=== PATIENT | female | born 1990 | race Caucasian/White ===

== ENCOUNTER 2022-06-08 20:29 | Inpatient (IN) | payer OTHER, SELFPAY ==
[2022-06-08] VITALS (23 sets, daily range): BP systolic 113–145; BP diastolic 62–89; PULSE 67–107; RESP 12–23; TEMP 36.6; O2SAT 95–100
--- NOTE | ~2022-06-08 | US_ITS ---
EXAMINATION: US OB <=14 wk fetus w TV INDICATION: , lower abd pain. Pelvic pain after taking oral termination medication purchased on line. LMP 04/29/2022. TECHNIQUE: Sonography of the pelvis was performed by transvaginal techniques. COMPARISON: None. RESULT: Uterus: - Orientation: Anteverted - Size: 10.4 x 6.1 x 4.8 cm - Myometrium: homogeneous echogenicity Gestation: - Intrauterine gestational sac: Not seen - Right ovary: - Size : 2.6 x 2.6 x 1.7 cm - Normal sonographic appearance with physiologic follicles. Left ovary: -Left ovary not visualized - 7.0 x 4.7 x 6.4 heterogeneous left adnexal mass with a 3.4 cm internal hypoechoic area that ma y represent an abnormal gestational sac. Pelvis free fluid: Large volume of free pelvic fluid tracking to the perihepatic and perisplenic spac es. Incidental liver hemangioma. IMPRESSION: No intrauterine gestational sac. Heterogeneous 7 cm left adnexal mass. Large volume free pelvic fluid extending to the liver and spleen. These findings are concerning for ectopic with rupture. Results reported telephonically to DELTA Olguin by Dr. Carter at 10:35 PM on 06/08/2022. Reviewed, dictated and finalized at location K. IMPRESSION: No intrauterine gestational sac. Heterogeneous 7 cm left adnexal mass. Large vo lume free pelvic fluid extending to the liver and spleen. These findings are co ncerning for ectopic with rupture. Results reported telephonically to DELTA Olguin by Dr. Carter at 10:3 5 PM on 06/08/2022.
--- NOTE | 2022-06-08 21:23 | ED.GENADULT ---
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 Patient states that the pain is severe in nature, is across her lower abdomen, and is constant. Denies relief after ibuprofen. She did have some vaginal bleeding after she took the pills, but this has eased up. patient got these pills online, she was told by the nurses facilitating the prescription that she should come to the ER to rule out an ectopic . Denies syncope, extremity swelling, headaches, lightheadedness. Related Data Home Medications Medication Instructions Recorded Confirmed fluticasone propionate 220 1 puff inhalation BID 06/09/22 06/09/22 mcg/actuation HFA aerosol inhaler (Flovent HFA) Allergies Allergy/AdvReac Type Severity Reaction Status Date / Time No Known Allergies Allergy Unknown Verified 12/12/19 10:51 Review of Systems Review of Systems: Gen: Denies fevers or chills Eyes: Denies eye pain or visual change ENT: Denies congestion Respiratory: Denies shortness of breath or cough CV: Denies chest pain or palpitations GI: Reports abdominal pain denies burning, urgency, frequency or hematuria Musculoskeletal: Denies back pain or muscle pain Neuro: Denies numbness, tingling, weakness or focal weakness Skin: Denies rash Except as documented, all other systems reviewed and negative [facility] Past Medical History Medical History (Updated 06/09/22 @ 00:02 by Emma Correa MD) Asthma Finger fracture, left HTN (hypertension) idiopathic intracranial hypertension Surgical History Surgical History (Updated 06/09/22 @ 08:35 by Emma Correa MD) History of removal of skin mole No significant past surgical history Family History Family History (Updated 06/09/22 @ 03:34 by Elisabet Wade RN) Mother Breast cancer Social History Social History Smoking status: Never smoker Alcohol intake: never Substance use: current Substance use type: marijuana Other substance usage details: daily Spiritual care concerns: No Exam Narrative: APPEARANCE: Well appearing, no pain in distress, well-nourished. Head: Normocephalic and atraumatic. EYES: PERRLA/EOMI, conjunctivae clear NOSE: No nasal drainage EARS: External ear normal in appearance THROAT: Oropharynx is clear. Mucous membranes are moist. NECK: Supple. No adenopathy, no masses. RESPIRATORY: Airway patent, respirations nonlabored. Clear to auscultation bilaterally, no rales, rhonchi, wheezing. CARDIOVASCULAR: Regular rate and rhythm without murmurs, rubs, or gallops. ABDOMINAL: Diffusely tender in lower abdomen. Normoactive bowel sounds. Soft, nondistended. No rebound tenderness or guarding. MUSCULOSKELETAL: Extremities are warm and well-perfused. Moves all extremities well. No edema. NEURO: Normal speech. No focal neurologic deficits. SKIN: Skin is warm and dry. No rashes. PSYCHIATRIC: Normal affect/mood. Course Consultations Consultation #1: Spoke with Dr. Correa, SOLAR MAINTENANCE TECHNICIAN, will take into OR for suspected ruptured ectopic Date: 06/08/22 Time: 22:55 Vital Signs Vital signs: Vital Signs Temperature 97.8 F 06/08/22 20:35 Pulse Rate 86 06/08/22 20:35 Respiratory Rate 18 06/08/22 20:35 Blood Pressure 122/84 06/08/22 20:35 Pulse Oximetry 100 06/08/22 20:35 Oxygen Delivery Room Air 06/08/22 20:35 Temperature 98.6 F 06/09/22 10:25 Pulse Rate 72 06/09/22 10:25 Respiratory Rate 16 06/09/22 10:25 Blood Pressure 107/60 06/09/22 10:25 Pulse Oximetry 100 06/09/22 10:25 Oxygen Delivery Room Air 06/09/22 08:00 Oxygen Flow Rate 6 06/09/22 02:30
[2022-06-08 21:43] LABS: Basophils Absolute Auto 0.1 K/mm3 (0.0-0.1); Basophils Percent Auto 0.5 % (0.2-1.2); Eosinophils Percent Auto 0.4 % (0-4.4); Hematocrit 32.6 % (37.0-47.0); Hemoglobin 10.6 g/dL (12.0-15.0); Immature Granulocyte Absolute 0.02 K/mm3 (0.00-0.031); Immature Granulocyte Percent A 0.2 % (0-0.5); Lymphocytes Absolute Auto 1.38 K/mm3 (0.9-3.2); Lymphocytes Percent Auto 12.3 % (18.3-44.2); Mean Corpuscular HGB Conc 32.5 g/dl (32-36); Mean Corpuscular Hemoglobin 29.7 pg (26-34); Mean Corpuscular Volume 91.3 fl (80-100); Mean Platelet Volume 10.7 fl (7.4-10.4); Monocytes Absolute Auto 0.5 K/mm3 (0.1-0.6); Monocytes Percent Auto 4.8 % (2.6-8.5); Neutrophils Absolute Auto 9.2 K/mm3 (1.3-6.7); Neutrophils Percent Auto 81.8 % (45.5-73.1); Platelet Count Result 293 k/mm3 (150-375); Red Blood Count 3.57 M/mm3 (4.2-5.4); Red Cell Distribution Width 13.3 % (11.5-14.5); White Blood Count 11.2 K/mm3 (4.5-10.0)
[2022-06-08 21:45] LABS: Appearance Urine Clear (Clear); Bilirubin Urine 1+ (Negative); Blood Urine Negative (Negative); Color Urine Yellow (Yellow); Glucose Urine UA Negative (Negative); Ketones Urine 4+ mg/dL (Negative); Leukocyte Esterase Ur Negative LEU/UL (Negative); Nitrate Urine Negative (Negative); Protein Urine Trace mg/dL (Negative); Specific Grav Ur 1.025 (1.001-1.035); Urobilinogen Urine 0.2 mg/dL (<2.0); pH Urine 5.5 (5.0-9.0)
[2022-06-08 21:51] LABS: Bacteria Urine Trace /hpf; Mucus Urine Heavy /lpf; Squamous Epithelial Cell Urine Many /hpf (Few)
[2022-06-08 21:54] LABS: Alanine Aminotransferase 10 U/L (6-35); Albumin Level 4.3 g/dL (3.5-5.1); Alkaline Phosphatase 45 U/L (38-126); Anion Gap 10 mmol/L (8-16); Aspartate Amino Transferase 16 U/L (14-36); Bilirubin,Total 0.8 mg/dL (0.2-1.3); Blood Urea Nitrogen 7 mg/dL (7-17); Calcium 9.7 mg/dL (8.4-10.2); Carbon Dioxide 25 mmol/L (22-30); Chloride 103 mmol/L (98-107); Estimated CRCL calculation 93 ml/min; Estimated Glomerular Filt Rate > 60; Glucose 114 mg/dL (65-110); Potassium 3.9 mmol/L (3.4-5.0); Sodium 138 mmol/L (137-145)
[2022-06-08 21:58] LABS: Add Urine Microscopic? YES
[2022-06-08] MEDS: MORPHINE SULFATE (*CRX) 4 MG/ML INJ IV PUSH (22:59)
[2022-06-08] MEDS: SODIUM CHLORIDE 0.9% IV 1,000 ML 999 ML IV CONT (22:59)
--- NOTE | 2022-06-08 23:08 | PC.NURSE ---
pt removing all jewlery and placing into bag. Pt placing booties on and hair net to prepare for OR.
[2022-06-08 23:23] LABS: Beta HCG Quantitative 140.57 mIU/ML
--- NOTE | 2022-06-08 23:35 | PM.IMHP ---
H&P: HPI History of Present Illness Date/Time: 06/08/22 23:35 Chief Complaint: Abdominal pain Narrative: Patient is a LMP approx. 04/29/22 who presented to the ED with complaints of abdominal pain. Based on LMP, patient would be approx. 5w6d gestation. This was an undesired and she contacted [employer] [facility] online service for termination. She received medication in the mail. She took mifepristone on 05/03 followed by two doses of misoprostol on 05/04. She did not start bleeding as expected and was advised by [employer] service to take a third dose of misoprostol on 05/05. She reports onset of bleeding shortly afterwards. Bleeding continued from 05/05 until 05/07. She reports bleeding, however, denies any passage of clots or tissue. She denies any further bleeding since then. She was feeling well until last night when she developed abdominal pain. Pain persisted throughout day today and patient also reported feeling dizzy and warm. She also experienced two episodes of emesis. She contacted [employer] service who advised patient to present to ED for further evaluation. Pelvic US showed a 7cm left adnexal mass with a 3.4cm hypoechoic structure, possibly gestational sac and a large amount of free fluid. High suspicion for ruptured ectopic . Decision made to proceed to OR for diagnostic laparoscopy, possible operative laparoscopy, removal of ectopic , possible salpingectomy. Review of Systems Review of Systems: All systems reviewed & are unremarkable except as noted in HPI and below Constitutional: Constitutional: Reports as per HPI and Reports no additional constitutional complaints Eyes: Eyes: Reports as per HPI and Reports no additional eye complaints ENT: Reports system reviewed and no additional complaints, except as documented and Reports as per HPI Cardiovascular: Cardiovascular: Reports as per HPI and Reports no additional cardiovascular complaints Respiratory: Respiratory: Reports as per HPI and Reports no additional respiratory complaints Gastrointestinal: Gastrointestinal: Reports as per HPI and Reports no additional gastrointestinal complaints Genitourinary: Genitourinary: Reports no additional female genitourinary complaints and Reports as per HPI Musculoskeletal: Musculoskeletal: Reports no additional musculoskeletal complaints and Reports as per HPI Integumentary/Breasts: Skin/Breast: Reports system reviewed and no additional complaints, except as docu and Reports as per HPI Neurologic: Reports system reviewed and no additional complaints, except as documented and Reports as per HPI Psychiatric: Psychiatric: Reports no additional psychiatric complaints and Reports as per HPI Endocrine: Endocrine: Reports no additional endocrine complaints and Reports as per HPI Hematologic/Lymphatic: Hematologic/Lymphatic: Reports no additional hematologic/lymphatic complaints and Reports as per HPI Allergic/Immunologic: Allergic/Immunologic: Reports no additional allergic/immunologic complaints and Reports as per HPI [facility] Past Medical History Medical History (Updated 06/09/22 @ 00:02 by Emma Correa MD) Asthma Finger fracture, left HTN (hypertension) idiopathic intracranial hypertension Surgical History Surgical History (Updated 06/08/22 @ 23:59 by Emma Correa MD) History of removal of skin mole No significant past surgical history Social History Social History Smoking status: Former smoker Substance use type: marijuana Meds Home Medications and Allergies Home Medications Medication Instructions Recorded Confirmed Type acetazolamide 500 mg 500 mg PO BID 12/12/19 12/12/19 History capsule,extended release albuterol sulfate 90 mcg/actuation 2 puff inhalation QID PRN 12/12/19 Rx aerosol inhaler (Ventolin HFA) shortness of breath or wheezing #1 g azithromycin 250 mg tablet See Rx Instructions PO .COMPLEX #6 12/12/19 Rx t
[2022-06-08 23:43] LABS: SARS-CoV-2 RNA PCR Negative
--- NOTE | 2022-06-08 23:43 | WPDANESEPP ---
Anes - Eval Pre Procedure Date/Time: 06/08/22 23:43 Pre Op Diagnosis: abd pain, took pill last monday Patient Data Age: 31 Gender: F Height: 1.57 m Weight: 61.2 kg Last Vital Signs Temp 36.6 C 06/08/22 20:35 Pulse 86 06/08/22 23:17 Resp 16 06/08/22 23:17 BP 115/87 06/08/22 23:17 Pulse Ox 100 06/08/22 23:17 O2 Del Method Room Air 06/08/22 20:35 Allergies Allergy/AdvReac Type Severity Reaction Status Date / Time No Known Allergies Allergy Unknown Verified 12/12/19 10:51 Home Medications Medication Instructions Recorded Confirmed Type acetazolamide 500 mg 500 mg PO BID 12/12/19 12/12/19 History capsule,extended release albuterol sulfate 90 mcg/actuation 2 puff inhalation QID PRN 12/12/19 Rx aerosol inhaler (Ventolin HFA) shortness of breath or wheezing #1 g azithromycin 250 mg tablet See Rx Instructions PO .COMPLEX #6 12/12/19 Rx tabs benzonatate 100 mg capsule 100 mg PO TID #20 caps 12/12/19 Rx (Tessalcassi Yu) prednisone 20 mg tablet 80 mg PO DAILY #12 tabs 12/12/19 Rx Laboratory Tests 06/08/22 06/08/22 06/08/22 21:36 21:36 21:36 WBC 11.2 K/mm3 H K/mm3 (4.5-10.0) RBC 3.57 M/mm3 L M/mm3 (4.2-5.4) Hgb 10.6 g/dL L g/dL (12.0-15.0) Hct 32.6 % L % (37.0-47.0) MCV 91.3 fl fl (80-100) MCH 29.7 pg pg (26-34) MCHC 32.5 g/dl g/dl (32-36) RDW 13.3 % % (11.5-14.5) Plt Count 293 k/mm3 k/mm3 (150-375) MPV 10.7 fl H fl (7.4-10.4) Immature Gran % (Auto) 0.2 % % (0-0.5) Neut % (Auto) 81.8 % H % (45.5-73.1) Lymph % (Auto) 12.3 % L % (18.3-44.2) [place] % (Auto) 4.8 % % (2.6-8.5) Eos % (Auto) 0.4 % % (0-4.4) Baso % (Auto) 0.5 % % (0.2-1.2) Lymph # (Auto) 1.38 K/mm3 K/mm3 (0.9-3.2) [place] # (Auto) 0.5 K/mm3 K/mm3 (0.1-0.6) Eos # (Auto) 0.0 K/mm3 K/mm3 (0-0.3) Baso # (Auto) 0.1 K/mm3 K/mm3 (0.0-0.1) Abs Immat Gran (auto) 0.02 K/mm3 K/mm3 (0.00-0.031) Absolute Neuts (auto) 9.2 K/mm3 H K/mm3 (1.3-6.7) Absolute Nucleated RBC 0.0 K/mm3 K/mm3 (0.0-0.012) Nucleated RBC % 0.0 % % (0.0-0.2) Sodium 138 mmol/L mmol/L (137-145) Potassium 3.9 mmol/L mmol/L (3.4-5.0) Chloride 103 mmol/L mmol/L (98-107) Carbon Dioxide 25 mmol/L mmol/L (22-30) Anion Gap 10 mmol/L mmol/L (8-16) BUN 7 mg/dL mg/dL (7-17) Creatinine 0.60 mg/dL L mg/dL (0.7-1.0) Estim Creat Clear Calc 93 ml/min ml/min Estimated GFR > 60 (59 - ) Glucose 114 mg/dL H mg/dL (65-110) Calcium 9.7 mg/dL mg/dL (8.4-10.2) Total Bilirubin 0.8 mg/dL mg/dL (0.2-1.3) AST 16 U/L U/L (14-36) ALT 10 U/L U/L (6-35) Alkaline Phosphatase 45 U/L U/L (38-126) Total Protein 7.0 g/dL g/dL (6.3-8.2) Albumin 4.3 g/dL g/dL (3.5-5.1) Beta HCG, Quant Urine Color Yellow (Yellow) Urine Appearance Clear (Clear) Urine pH 5.5 (5.0-9.0) Ur Specific [place] 1.025 (1.001-1.035) Urine Protein Trace mg/dL mg/dL (Negative) Urine Glucose (UA) Negative mg/dL mg/dL (Negative) Urine Ketones 4+ mg/dL H mg/dL (Negative) Ur Blood (Man) Negative (Negative) Urine Nitrate Negative (Negative) Urine Bilirubin 1+ H (Negative) Urine Urobilinogen 0.2 mg/dL mg/dL (<2.0) Leukocyte Esterase Rfl Negative JOSE MIGUEL/UL JOSE MIGUEL/UL (Negative) Urine RBC 3-5 /hpf H /hpf (0-2) Urine WBC 4-6 /hpf H /hpf Ur Squamous Epith Cells Many /hpf H /hpf (Few) Urine Bacteria Trace /hpf /hpf Hyaline Casts 1-2 /lpf /lpf (
[2022-06-09] VITALS (15 sets, daily range): BP systolic 99–145; BP diastolic 60–92; PULSE 67–119; RESP 14–24; TEMP 36–37; O2SAT 95–100; BMI 25.2
--- NOTE | 2022-06-09 00:05 | WPDHPUPDATE1 ---
History and Physical Update Update Date/Time: 06/09/22 00:05 History and Physical has been reviewed, including an updated exam of the patient. There are NO changes in the patient's condition. Risks, benefits, and alternatives have been discussed and questions answered. Patient agrees to proceed with procedure.
--- NOTE | 2022-06-09 00:11 | WPDANESEPPF ---
Anes - Initial Pre Proc Eval Procedure: Operation Date: 06/08/22 00:30 Proposed Procedures p Exploratory Laparoscopy with possible salpingectomy - Emma Correa MD Date/Time: 06/09/22 00:11 Pre Op Diagnosis: abd pain, took pill last monday Patient Data Age: 31 Gender: F Height: 1.57 m Weight: 61.2 kg Last Vital Signs Temp 36.6 C 06/08/22 20:35 Pulse 96 06/08/22 23:47 Resp 21 H 06/08/22 23:47 BP 122/65 06/08/22 23:47 Pulse Ox 100 06/08/22 23:47 O2 Del Method Room Air 06/08/22 20:35 Allergies Allergy/AdvReac Type Severity Reaction Status Date / Time No Known Allergies Allergy Unknown Verified 12/12/19 10:51 Home Medications Medication Instructions Recorded Confirmed Type acetazolamide 500 mg 500 mg PO BID 12/12/19 12/12/19 History capsule,extended release albuterol sulfate 90 mcg/actuation 2 puff inhalation QID PRN 12/12/19 Rx aerosol inhaler (Ventolin HFA) shortness of breath or wheezing #1 g azithromycin 250 mg tablet See Rx Instructions PO .COMPLEX #6 12/12/19 Rx tabs benzonatate 100 mg capsule 100 mg PO TID #20 caps 12/12/19 Rx (Tessalon Gigi) prednisone 20 mg tablet 80 mg PO DAILY #12 tabs 12/12/19 Rx Laboratory Tests 06/08/22 06/08/22 06/08/22 21:36 21:36 21:36 WBC 11.2 K/mm3 H K/mm3 (4.5-10.0) RBC 3.57 M/mm3 L M/mm3 (4.2-5.4) Hgb 10.6 g/dL L g/dL (12.0-15.0) Hct 32.6 % L % (37.0-47.0) MCV 91.3 fl fl (80-100) MCH 29.7 pg pg (26-34) MCHC 32.5 g/dl g/dl (32-36) RDW 13.3 % % (11.5-14.5) Plt Count 293 k/mm3 k/mm3 (150-375) MPV 10.7 fl H fl (7.4-10.4) Immature Gran % (Auto) 0.2 % % (0-0.5) Neut % (Auto) 81.8 % H % (45.5-73.1) Lymph % (Auto) 12.3 % L % (18.3-44.2) [place] % (Auto) 4.8 % % (2.6-8.5) Eos % (Auto) 0.4 % % (0-4.4) Baso % (Auto) 0.5 % % (0.2-1.2) Lymph # (Auto) 1.38 K/mm3 K/mm3 (0.9-3.2) [place] # (Auto) 0.5 K/mm3 K/mm3 (0.1-0.6) Eos # (Auto) 0.0 K/mm3 K/mm3 (0-0.3) Baso # (Auto) 0.1 K/mm3 K/mm3 (0.0-0.1) Abs Immat Gran (auto) 0.02 K/mm3 K/mm3 (0.00-0.031) Absolute Neuts (auto) 9.2 K/mm3 H K/mm3 (1.3-6.7) Absolute Nucleated RBC 0.0 K/mm3 K/mm3 (0.0-0.012) Nucleated RBC % 0.0 % % (0.0-0.2) Sodium 138 mmol/L mmol/L (137-145) Potassium 3.9 mmol/L mmol/L (3.4-5.0) Chloride 103 mmol/L mmol/L (98-107) Carbon Dioxide 25 mmol/L mmol/L (22-30) Anion Gap 10 mmol/L mmol/L (8-16) BUN 7 mg/dL mg/dL (7-17) Creatinine 0.60 mg/dL L mg/dL (0.7-1.0) Estim Creat Clear Calc 93 ml/min ml/min Estimated GFR > 60 (59 - ) Glucose 114 mg/dL H mg/dL (65-110) Calcium 9.7 mg/dL mg/dL (8.4-10.2) Total Bilirubin 0.8 mg/dL mg/dL (0.2-1.3) AST 16 U/L U/L (14-36) ALT 10 U/L U/L (6-35) Alkaline Phosphatase 45 U/L U/L (38-126) Total Protein 7.0 g/dL g/dL (6.3-8.2) Albumin 4.3 g/dL g/dL (3.5-5.1) Beta HCG, Quant Urine Color Yellow (Yellow) Urine Appearance Clear (Clear) Urine pH 5.5 (5.0-9.0) Ur Specific [place] 1.025 (1.001-1.035) Urine Protein Trace mg/dL mg/dL (Negative) Urine Glucose (UA) Negative mg/dL mg/dL (Negative) Urine Ketones 4+ mg/dL H mg/dL (Negative) Ur Blood (Man) Negative (Negative) Urine Nitrate Negative (Negative) Urine Bilirubin 1+ H (Negative) Urine Urobilinogen 0.2 mg/dL mg/dL (<2.0) Leukocyte Esterase Rfl Negative JOSE MIGUEL/UL JOSE MIGUEL/UL (Negative) Urine RBC 3-5 /hpf H /hpf (0-2) Urine WBC 4-6 /hpf H /hp
[2022-06-09] MEDS: DOXYCYCLINE 100 MG/NS 100 ML 100 MG/100 ML BAG IVPB (00:21)
[2022-06-09] MEDS: BUPIVACAINE/EPINEPHRINE 0.25% 10 ML VIAL 20 ML INFILTRATE (00:52)
--- NOTE | 2022-06-09 01:55 | W.PM.PROC2 ---
Procedure Note - Detailed Date of Procedure 06/09/22 Pre-op Diagnosis Suspected ruptured ectopic Post-op Diagnosis Same Procedure Performed Diagnostic laparoscopy with conversion to laparotomy, abdominal left salpigo-oophorectomy, evacuation of hemoperitoneum Surgeon Emma Correa MD Survey Research Manager Madie Frey Anesthesia General Findings Moderate amount of hemoperitoneum, minimally dilated left fallopian tube oozing from fimbriated end with large adherent blood clot, enlarged left ovary, normal appearing uterus, normal appearing right ovary and fallopian tube Description of Procedure Patient was taken to the operating room where she self-transferred to the operating table. Patient was placed in dorsal supine position. General anesthesia was administered and found to be adequate. Patient was repositioned in dorsal lithotomy position with the use of Bassam stirrups. Arms were carefully tucked at side. Patient was prepped and draped in usual sterile fashion. A Hazel catheter was inserted using aseptic technique. A sponge stick was inserted in vagina for manipulation of uterus during laparoscopic portion of case. Substation Designer's gloves were changed. Attention was then turned to the patient's abdomen where a small amount of 0.25% Marcaine was injected infraumbilically.? An infraumbilical incision was made with a scalpel.? A Veress needle was introduced into the abdominal cavity.? Intra-abdominal placement was confirmed with saline.? The Veress needle was then connected to the CO2 gas tubing and insufflation was begun.? When adequate insufflation was achieved, the Veress needle was removed and a 5 mm Optiview trocar was introduced under direct visualization using the laparoscope. The trocar was noted to be superior to peritoneum and despite several attempts to reposition and reinsert trocar both with and without introducer, further attempts at entry was deemed to be unsafe and decision was made to convert to laparotomy. Trocar was removed. When laparotomy surgical tray was opened, a mini Pfannenstiel skin incision was made with a scalpel and carried through to underlying layer of fascia with the Bovie. The fascia was incised in the midline and the incision was extended laterally with the use of forceps and Land scissors. The inferior aspect of the fascial incision was grasped with Ed clamps, elevated, and the underlying rectus muscle were dissected off with Land scissors. Attention was then turned to the superior aspect of the fascial incision, which in a similar manner, was grasped with Ed clamps, elevated, and the underlying rectus muscles were also dissected off with Land scissors. The rectus muscles were in the midline and the peritoneal cavity was entered bluntly. Immediately upon entry, a large amount of dark blood was returned and subsequently suctioned. Park retractor and [place] retractors were placed for enhanced visualization. The left fallopian tube and ovary were visualized. A large adherent blood clot surrounding the fimbriated end of fallopian tube and ovary was noted. Clot was removed. The fallopian tube appeared mildly dilated with minimal amount of oozing noted from fimbriated end. The ovary appeared enlarged. A LigaSure device was then used to take sequential bites in the mesosalpinx beneath fallopian tube to the level of the uterus. The fallopian tube was transected and handed off the field to be sent to pathology for analysis. Upon further inspection of enlarged left ovary, there was also possible suspicion for possible ectopic within ovary. A fluctuant area of the ovary was incised with scissors and a moderate amount of bloody fluid and tissue was extruded from ovary. The utero-ovarian ligament was then identified and transected with the Ligasure device. The infundibulopelvic ligament was then identified and also transected, completely the ovary. Ovary was then handed off the field to be sent to pathology for
[2022-06-09] MEDS: LACTATED RINGERS 1,000 ML 30 ML IV CONT (02:00)
[2022-06-09] MEDS: fentaNYL CITRATE INJ (*CRX) 100 MCG/2 ML VIAL 25 MCG IV PUSH ×4 (02:12→02:33)
[2022-06-09] MEDS: ceFAZolin 2 GM/D5W 50 ML 2 GM/50 ML BAG IVPB ×2 (02:35→10:24)
[2022-06-09] MEDS: IBUPROFEN IV 800 MG/200 ML 800 MG/200 ML BAG 400 MG IVPB ×2 (03:00→09:02)
[2022-06-09] MEDS: MORPHINE SULFATE (*CRX) 4 MG/ML INJ IV PUSH (03:45)
[2022-06-09] MEDS: DEXTROSE 5%/LACTATED RINGERS 1,000 ML 125 ML IV CONT ×3 (03:47→22:52)
--- NOTE | 2022-06-09 04:15 | ADMGEN ---
This patient, Lilian Corado, was admitted to 2 Medical Room 255-. Patient/family oriented to hospital policies and general routines including ID bracelet, bed and alarms, visiting hours, pain management, procedures, bathroom and other care routines, personal items, smoking policy, room service/diet, and visiting hours. Information on how to activate the Rapid Response Team has been discussed. Patient/Family are encouraged to report perceived risks to care and to ask questions if they do not understand what they are told or what they should do.
[2022-06-09] MEDS: HYDROcodone/acetaminophen (*CRX) 5-325 MG TABLET 1 TAB PO ×2 (06:16→18:07)
--- NOTE | 2022-06-09 08:33 | PM.GYNPNOP ---
PRIMER BOXER - A/P Assessment and plan (1) History of left salpingo-oophorectomy: Code(s): Z90.79 - Acquired absence of other genital organ(s); Z90.721 - Acquired absence of ovaries, unilateral Status: Acute Assessment and Plan: doing well continue routine postoperative care switch completely to PO pain medication this AM/early PM will dc aparicio this afternoon encourage OOB to chair and ambulation Postoperative Procedures: Procedures Operation Date: 06/09/22 00:30 Actual Procedure Side Surgeon p Diagnostic Laparoscopy with conversion to laparotomy, abdominal left salpingo-oopherectomy, evacuation of hemoperitoneum Left Emma Correa MD Time Spent With Patient Time: Total time spent is greater than 50% in coordination of care (as documented) at patient's floor/unit and/or counseling patient: Time with patient: less than 15 minutes PRIMER BOXER- PN:Subj Post-Op Subjective Date/time seen: 06/09/22 08:33 In general, patient doing well. Pain reasonably well controlled with medication. Reported mild nausea with PO medication earlier. Denies any vomiting. Also denies any headache or chest pain. Aparicio catheter in place. No flatus yet. No ambulation yet. Exam Const: General: cooperative, healthy appearing and no acute distress GI: Inspection: non-distended GI Palp: Yes Soft to palpation and Yes Tenderness to palpation present (GI) (appropriately tender) Extrem: Right lower extremity: no edema Left lower extremity: no edema Other: no calf tenderness PRIMER BOXER - PN: Obj Data Vital Signs Vital Signs: Vital Signs - 24 hr 06/08/22 20:35 06/08/22 21:48 06/08/22 21:12 Temperature 36.6 C Pulse Rate 86 67 Respiratory Rate 18 16 Blood Pressure 122/84 113/80 Pulse Oximetry 100 100 95 Oxygen Delivery Room Air Oxygen Flow Rate 06/08/22 21:15 06/08/22 21:16 06/08/22 21:17 Temperature Pulse Rate 84 Respiratory Rate 12 Blood Pressure 114/83 115/79 Pulse Oximetry 100 100 100 Oxygen Delivery Oxygen Flow Rate 06/08/22 21:30 06/08/22 21:38 06/08/22 21:45 Temperature Pulse Rate Respiratory Rate Blood Pressure 116/89 Pulse Oximetry 100 100 Oxygen Delivery Oxygen Flow Rate 06/08/22 21:46 06/08/22 22:30 06/08/22 22:33 Temperature Pulse Rate Respiratory Rate Blood Pressure 113/80 119/62 Pulse Oximetry 100 99 Oxygen Delivery Oxygen Flow Rate 06/08/22 22:46 06/08/22 22:47 06/08/22 23:01 Temperature Pulse Rate 80 Respiratory Rate 16 Blood Pressure 123/83 132/89 Pulse Oximetry 100 100 Oxygen Delivery Oxygen Flow Rate 06/08/22 23:03 06/08/22 23:15 06/08/22 23:17 Temperature Pulse Rate 107 H 89 86 Respiratory Rate 16 14 16 Blood Pressure 115/87 Pulse Oximetry 100 100 Oxygen Delivery Oxygen Flow Rate 06/08/22 23:18 06/08/22 23:30 06/08/22 23:32 Temperature Pulse Rate 83 93 99 Respiratory Rate 20 20 19 Blood Pressure 145/76 H Pulse Oximetry 100 100 100 Oxygen Delivery Oxygen Flow Rate 06/08/22 23:45 06/08/22 23:47 06/09/22 02:00 Temperature 36.7 C Pulse Rate 96 96 119 H Respiratory Rate 23 H 21 H 20 Blood Pressure 122/65 112/68 Pulse Oximetry 100 100 95 Oxygen Delivery Simple Face Mask Oxygen Flow Rate 6 06/09/22 02:15 06/09/22 02:30 06/09/22 02:45 Temperature Pulse Rate 75 75 73 Respiratory Rate 16 16 14 Blood Pressure 127/84 145/85 H 126/89 Pulse Oximetry 95 100 97 Oxygen Delivery Simple Face Mask Simple Face Mask Room Air Oxygen Flow Rate 6 6 06/09/22 03:00 06/09/22 03:00 06/09/22 03:10 Temperature 36.6 C 36.6 C Pulse Rate 71 70 Respiratory Rate 14 14 Blood Pressure 118/92 H 124/82 Pulse Oximetry 97 96 Oxygen Delivery Room Air Room Air Oxygen Flow Rate 06/09/22 03:25 06/09/22 04:09 06/09/22 03:40 Temperature 36.4 C 36.4 C Pulse Rate 67 82 Respiratory Rate 16 18 Blood Pressure 114/83 106/66 Pulse Oximetry 100 100 Oxygen Delive
[2022-06-09] MEDS: ONDANSETRON INJ 4 MG/2 ML VIAL IV PUSH ×2 (09:02→18:07)
[2022-06-09] MEDS: IBUPROFEN 600 MG TABLET PO (15:03)
--- NOTE | 2022-06-09 16:21 | PM.GYNPNOP ---
GUARD MANAGER - A/P Assessment and plan (1) History of left salpingo-oophorectomy: Code(s): Z90.79 - Acquired absence of other genital organ(s); Z90.721 - Acquired absence of ovaries, unilateral Status: Acute Assessment and Plan: doing well continue routine postoperative care adv diet slowly as tolerated continue PO pain medication encourage ambulation and use of IS anticipate dc home tomorrow Postoperative Procedures: Procedures Operation Date: 06/09/22 00:30 Actual Procedure Side Surgeon p Diagnostic Laparoscopy with conversion to laparotomy, abdominal left salpingo-oopherectomy, evacuation of hemoperitoneum Left Emma Correa MD Time Spent With Patient Time: Total time spent is greater than 50% in coordination of care (as documented) at patient's floor/unit and/or counseling patient: Time with patient: less than 15 minutes GUARD MANAGER- PN:Subj Post-Op Subjective Date/time seen: 06/09/22 16:21 Doing well with PO medication, however, had episode of vomiting earlier. Nausea currently resolved. Has only had a few crackers. Hazel catheter removed. Has not yet voided. No flatus yet. Was sitting up in chair for a little while, but limited ambulation. Exam Const: General: cooperative, comfortable and no acute distress GUARD MANAGER - PN: Obj Data Vital Signs Vital Signs: Vital Signs - 24 hr 06/08/22 20:35 06/08/22 21:48 06/08/22 21:12 Temperature 36.6 C Pulse Rate 86 67 Respiratory Rate 18 16 Blood Pressure 122/84 113/80 Pulse Oximetry 100 100 95 Oxygen Delivery Room Air Oxygen Flow Rate 06/08/22 21:15 06/08/22 21:16 06/08/22 21:17 Temperature Pulse Rate 84 Respiratory Rate 12 Blood Pressure 114/83 115/79 Pulse Oximetry 100 100 100 Oxygen Delivery Oxygen Flow Rate 06/08/22 21:30 06/08/22 21:38 06/08/22 21:45 Temperature Pulse Rate Respiratory Rate Blood Pressure 116/89 Pulse Oximetry 100 100 Oxygen Delivery Oxygen Flow Rate 06/08/22 21:46 06/08/22 22:30 06/08/22 22:33 Temperature Pulse Rate Respiratory Rate Blood Pressure 113/80 119/62 Pulse Oximetry 100 99 Oxygen Delivery Oxygen Flow Rate 06/08/22 22:46 06/08/22 22:47 06/08/22 23:01 Temperature Pulse Rate 80 Respiratory Rate 16 Blood Pressure 123/83 132/89 Pulse Oximetry 100 100 Oxygen Delivery Oxygen Flow Rate 06/08/22 23:03 06/08/22 23:15 06/08/22 23:17 Temperature Pulse Rate 107 H 89 86 Respiratory Rate 16 14 16 Blood Pressure 115/87 Pulse Oximetry 100 100 Oxygen Delivery Oxygen Flow Rate 06/08/22 23:18 06/08/22 23:30 06/08/22 23:32 Temperature Pulse Rate 83 93 99 Respiratory Rate 20 20 19 Blood Pressure 145/76 H Pulse Oximetry 100 100 100 Oxygen Delivery Oxygen Flow Rate 06/08/22 23:45 06/08/22 23:47 06/09/22 02:00 Temperature 36.7 C Pulse Rate 96 96 119 H Respiratory Rate 23 H 21 H 20 Blood Pressure 122/65 112/68 Pulse Oximetry 100 100 95 Oxygen Delivery Simple Face Mask Oxygen Flow Rate 6 06/09/22 02:15 06/09/22 02:30 06/09/22 02:45 Temperature Pulse Rate 75 75 73 Respiratory Rate 16 16 14 Blood Pressure 127/84 145/85 H 126/89 Pulse Oximetry 95 100 97 Oxygen Delivery Simple Face Mask Simple Face Mask Room Air Oxygen Flow Rate 6 6 06/09/22 03:00 06/09/22 03:00 06/09/22 03:10 Temperature 36.6 C 36.6 C Pulse Rate 71 70 Respiratory Rate 14 14 Blood Pressure 118/92 H 124/82 Pulse Oximetry 97 96 Oxygen Delivery Room Air Room Air Oxygen Flow Rate 06/09/22 03:25 06/09/22 04:09 06/09/22 03:40 Temperature 36.4 C 36.4 C Pulse Rate 67 82 Respiratory Rate 16 18 Blood Pressure 114/83 106/66 Pulse Oximetry 100 100 Oxygen Delivery Room Air Oxygen Flow Rate 06/09/22 04:10 06/09/22 05:10 06/09/22 10:25 Temperature 36.5 C 36.7 C 37.0 C Pulse Rate 93 97 72 Respiratory Rate 16 16 16 Blood Pressure 105/71 99/62 L 107/60 Pulse Oximetry 100 100 100 Oxyge
[2022-06-10 05:25] LABS: Hematocrit 24.1 % (37.0-47.0); Mean Corpuscular HGB Conc 33.2 g/dl (32-36); Mean Corpuscular Hemoglobin 30.2 pg (26-34); Mean Corpuscular Volume 90.9 fl (80-100); Mean Platelet Volume 10.8 fl (7.4-10.4); Platelet Count Result 181 k/mm3 (150-375); Red Blood Count 2.65 M/mm3 (4.2-5.4); Red Cell Distribution Width 13.8 % (11.5-14.5); White Blood Count 6.3 K/mm3 (4.5-10.0)
[2022-06-10 06:00] VITALS: BP 121/74; PULSE 80; RESP 21; TEMP 36.2; O2SAT 100
--- NOTE | 2022-06-10 08:34 | PM.GYNPNOP ---
CITY SUPERINTENDENT - A/P Assessment and plan (1) History of left salpingo-oophorectomy: Code(s): Z90.79 - Acquired absence of other genital organ(s); Z90.721 - Acquired absence of ovaries, unilateral Status: Acute Assessment and Plan: POD#1 doing well continue routine postoperative care encourage ambulation and use of IS anticipate dc home today emergency precautions reviewed f/u in office in 2 weeks for postoperative visit Postoperative Procedures: Procedures Operation Date: 06/09/22 00:30 Actual Procedure Side Surgeon p Diagnostic Laparoscopy with conversion to laparotomy, abdominal left salpingo-oopherectomy, evacuation of hemoperitoneum Left Emma Correa MD Time Spent With Patient Time: Total time spent is greater than 50% in coordination of care (as documented) at patient's floor/unit and/or counseling patient: Time with patient: less than 15 minutes CITY SUPERINTENDENT- PN:Subj Post-Op Subjective Date/time seen: 06/10/22 08:34 Patient doing well. Pain well controlled with medication. Denies any headache, chest pain, SOB, N/V. Tolerating PO diet. Ambulating without difficulty. Voiding well. No flatus yet. Exam Const: General: cooperative, healthy appearing, comfortable and no acute distress GI: Inspection: non-distended GI Palp: No abdominal tenderness and Yes Soft to palpation Other: inc c/d/i Extrem: Right lower extremity: no edema Left lower extremity: no edema Other: no calf tenderness CITY SUPERINTENDENT - PN: Obj Data Vital Signs Vital Signs: Vital Signs - 24 hr 06/09/22 10:25 06/09/22 14:59 06/09/22 18:17 Temperature 37.0 C 36.0 C L 36.3 C L Pulse Rate 72 72 83 Respiratory Rate 16 16 24 H Blood Pressure 107/60 123/61 112/67 Pulse Oximetry 100 100 100 Oxygen Delivery 06/09/22 21:04 06/09/22 20:00 06/10/22 06:00 Temperature 36.2 C L 36.2 C L Pulse Rate 96 96 80 Respiratory Rate 21 H 21 H 21 H Blood Pressure 134/82 121/74 Pulse Oximetry 100 100 100 Oxygen Delivery Room Air Intake/Output Intake/Output: Intake & Output 06/07/22 06/08/22 06/09/22 06/10/22 23:59 23:59 23:59 23:59 Intake Total 4510 600 Output Total 1325 900 Balance 3185 -300 Meds/Results Medications: Active Medications Generic Name Dose Route Start Last Admin Trade Name Nathanaelq PRN Reason Stop Dose Admin Hydrocodone Bitart/Acetaminophen 1 tab 06/09/22 03:13 06/09/22 18:07 Hydrocodone/Acetaminophen (*Crx) 5-325 Mg Tablet PO 1 tab Q3H PRN Administration Pain Rated 5 or Less Hydrocodone Bitart/Acetaminophen 1 tab 06/09/22 03:13 Hydrocodone/Acetaminophen (*Crx) 10-325 Mg Tablet PO Q3H PRN Pain Rated 6 or Greater Dextrose/Lactated Ringer's 1,000 mls @ 125 mls/hr 06/09/22 03:13 06/09/22 22:52 Dextrose 5%/Lactated Ringers IV CONT 125 mls/hr .Q8H VIGNESH Administration Ibuprofen 600 mg 06/09/22 08:28 06/09/22 15:03 Ibuprofen 600 Mg Tablet PO 600 mg Q6H PRN Administration Pain Rated 1-3 Morphine Sulfate 4 mg 06/09/22 03:08 06/09/22 03:45 Morphine Sulfate (*Crx) 4 Mg/Ml Inj IV PUSH 4 mg Q3HR PRN Administration Pain Ondansetron HCl 4 mg 06/09/22 03:13 06/09/22 18:07 Ondansetron Inj 4 Mg/2 Ml Vial IV PUSH 4 mg Q6H PRN Administration Nausea Radiology Results: ITS Impressions Obstetrics Ultrasound 06/08/22 22:28 IMPRESSION: No intrauterine gestational sac. Heterogeneous 7 cm left adnexal mass. Large volume free pelvic fluid extending to the liver and spleen. These findings are concerning for ectopic with rupture. Results reported telephonically to DELTA Olguin by Dr. Carter at 10:35 PM on 06/08/2022. Labs CBC & Chem 7: 06/10/22 05:14 06/08/22 21:36 Labs: Laboratory Results - last 24 hr 06/10/22 05:14 WBC 6.3 RBC 2.65 L Hgb 8.0 L Hct 24.1 L MCV 90.9 MCH 30.2 MCHC 33.2 RDW 13.8 Plt Count 181 MPV 10.8 H
[2022-06-10] MEDS: IBUPROFEN 600 MG TABLET PO (09:19)
[2022-06-10 09:40] VITALS: O2SAT 96
[2022-06-10] MEDS: SIMETHICONE 80 MG TAB.CHEW PO (13:49)
[2022-06-10 14:00] VITALS: BP 118/72; PULSE 69; RESP 16; TEMP 36.8; O2SAT 100
--- NOTE | 2022-06-10 15:26 | PM.GYNPNOP ---
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 OPERATOR - A/P Assessment and plan (1) History of left salpingo-oophorectomy: Code(s): Z90.79 - Acquired absence of other genital organ(s); Z90.721 - Acquired absence of ovaries, unilateral Status: Acute Assessment and Plan: pt doing well dc home in stable condition f/u in office in 2 weeks Postoperative Procedures: Procedures Operation Date: 06/09/22 00:30 Actual Procedure Side Surgeon p Diagnostic Laparoscopy with conversion to laparotomy, abdominal left salpingo-oopherectomy, evacuation of hemoperitoneum Left Emma Correa MD Time Spent With Patient Time: Total time spent is greater than 50% in coordination of care (as documented) at patient's floor/unit and/or counseling patient: Time with patient: less than 15 minutes 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 OPERATOR- PN:Subj Post-Op Subjective Date/time seen: 06/10/22 15:26 Spoke with RN. Patient doing well. She has passed flatus and is ambulating well. Pain well controlled with medication. Patient requesting dc home. 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 OPERATOR - PN: Obj Data Vital Signs Vital Signs: Vital Signs - 24 hr 06/09/22 18:17 06/09/22 21:04 06/09/22 20:00 Temperature 36.3 C L 36.2 C L Pulse Rate 83 96 96 Respiratory Rate 24 H 21 H 21 H Blood Pressure 112/67 134/82 Pulse Oximetry 100 100 100 Oxygen Delivery Room Air 06/10/22 06:00 06/10/22 09:40 06/10/22 14:00 Temperature 36.2 C L 36.8 C Pulse Rate 80 69 Respiratory Rate 21 H 16 Blood Pressure 121/74 118/72 Pulse Oximetry 100 96 100 Oxygen Delivery Room Air Intake/Output Intake/Output: Intake & Output 06/07/22 06/08/22 06/09/22 06/10/22 23:59 23:59 23:59 23:59 Intake Total 4510 1960 Output Total 1325 900 Balance 3185 1060 Meds/Results Medications: Active Medications Generic Name Dose Route Start Last Admin Trade Name Freq PRN Reason Stop Dose Admin Hydrocodone Bitart/Acetaminophen 1 tab 06/09/22 03:13 06/09/22 18:07 Hydrocodone/Acetaminophen (*Crx) 5-325 Mg Tablet PO 1 tab Q3H PRN Administration Pain Rated 5 or Less Hydrocodone Bitart/Acetaminophen 1 tab 06/09/22 03:13 Hydrocodone/Acetaminophen (*Crx) 10-325 Mg Tablet PO Q3H PRN Pain Rated 6 or Greater Ibuprofen 600 mg 06/09/22 08:28 06/10/22 09:19 Ibuprofen 600 Mg Tablet PO 600 mg Q6H PRN Administration Pain Rated 1-3 Morphine Sulfate 4 mg 06/09/22 03:08 06/09/22 03:45 Morphine Sulfate (*Crx) 4 Mg/Ml Inj IV PUSH 4 mg Q3HR PRN Administration Pain Ondansetron HCl 4 mg 06/09/22 03:13 06/09/22 18:07 Ondansetron Inj 4 Mg/2 Ml Vial IV PUSH 4 mg Q6H PRN Administration Nausea Simethicone 80 mg 06/10/22 11:19 06/10/22 13:49 Simethicone 80 Mg Tab.Chew PO 80 mg QID PRN Administration Abdominal Cramping Radiology Results: ITS Impressions Obstetrics Ultrasound 06/08/22 22:28 IMPRESSION: No intrauterine gestational sac. Heterogeneous 7 cm left adnexal mass. Large volume free pelvic fluid extending to the liver and spleen. These findings are concerning for ectopic with rupture. Results reported telephonically to DELTA Olguin by Dr. Carter at 10:35 PM on 06/08/2022. Labs CBC & Chem 7: 06/10/22 05:14 06/08/22 21:36 Labs: Laboratory Results - last 24 hr 06/10/22 05:14 WBC 6.3 RBC 2.65 L Hgb 8.0 L Hct 24.1 L MCV 90.9 MCH 30.2 MCHC 33.2 RDW 13.8 Plt Count 181 MPV 10.8 H
--- NOTE | 2022-06-10 15:27 | P.DS_ITS ---
DS: Admitting Diagnosis Discharge Date 06/10/22 Admitting Diagnosis Ruptured ectopic DS: Summary Hospital Course Hospital Course: Uncomplicated Time Spent with Patient Time attestation: Total time spent providing and/or coordinating discharge services: DS: Data Data Completed and Pending Pending studies at discharge: Pending at discharge 06/09/22 01:18 Surgical [PTH] Routine Labs on day of discharge: Labs from last 24 hours 06/10/22 05:14 WBC 6.3 RBC 2.65 L Hgb 8.0 L Hct 24.1 L MCV 90.9 MCH 30.2 MCHC 33.2 RDW 13.8 Plt Count 181 MPV 10.8 H Discharge Plan Discharge Attending physician on discharge: Emma Correa Consulting providers: Yen Epstein Discharging Clinician: Emma Correa Anticipated Discharge Date/Time: 06/10/22 15:28 Patient Disposition: Home, Self-Care Activity: may drive after 2 weeks, as tolerated and pelvic rest Diet: regular Discharge Instructions: Call office ([phone]) to schedule the following appointments: Postoperative/wound check in 2 weeks. You may take Ibuprofen 600mg every 6 hours as needed for pain. I have sent a prescription for a stronger pain medication, [place], to your pharmacy. You may take this as prescribed for breakthrough pain (pain that is not controlled with Ibuprofen). No driving while taking narcotics. Pain medication may make you constipated. It may be helpful to take an [id number] stool softener, such as Colace and/or Senokot, along with the pain medication to help lessen constipation. You may also take Simethicone for gas discomfort. Call office or go to ED for pain not controlled with medication, headache, chest pain, shortness of breath, fever, chills, persistent nausea or vomiting, severe abdominal pain, heavy vaginal bleeding >2 pads/hour, foul vaginal discharge or odor, any redness near incision, severe pain, pus or drainage from incision site. Patient Instructions: Antibiotic Form Stand Alone Forms: General Discharge Information Follow-up/Referrals: Emma Correa MD [Physician] - Discharge Medications: New hydrocodone-acetaminophen 5-325 mg Tablet 1 tablet PO Q4-6H PRN (Reason: Pain Rated 5 Or Less) Qty: 10 0RF Continued albuterol sulfate [Ventolin HFA] 90 mcg/actuation HFA aerosol inhaler 2 puff INHALATION QID PRN (Reason: shortness of breath or wheezing) Qty: 1 1RF fluticasone propionate [Flovent HFA] 220 mcg/actuation HFA aerosol inhaler 1 puff INHALATION BID Date of admission: 06/09/22 03:13 Primary Care Provider: Shay,Getachew Albert Admitting Provider: Emma Correa Attending physician on admission: Emma Correa Condition: Stable
== END 2022-06-10 16:15 | disposition home or self-care (01) | DRG 817 ==
LOC: ANHED 23:54 → ANH2MED 06-09 03:17
PROVIDERS: Physician Assistant; Admitting Provider Student in an Organized Health Care Education/Training Program; Emergency Provider Emergency Medicine; PCP Internal Medicine; Visit Provider Student in an Organized Health Care Education/Training Program
PROC: (CPT 49320; principal; 2022-06-08 00:30)
DX: O00.90 Unspecified ectopic pregnancy without intrauterine pregnancy (principal); K66.1 Hemoperitoneum; Z53.31 Laparoscopic surgical procedure converted to open procedure; I10 Essential (primary) hypertension; J45.909 Unspecified asthma, uncomplicated; Z20.822 Contact with and (suspected) exposure to COVID-19
CPT/HCPCS: 36415; 76801; 76817; 80053; 81001; 81025; 84702; 85025; 85027; 86850; 86900; 86901; 88305; 96374; 99285; A9270; C9803; J0131; J0330; J0690; J1741; J2250; J2270; J2405; J2704; J3010; J7030; J7120; J7121; U0003; U0005

== ENCOUNTER 2023-09-02 12:55 | Emergency (ER) | payer OTHER, SELFPAY ==
[2023-09-02] VITALS (18 sets, daily range): BP systolic 115–140; BP diastolic 70–95; PULSE 49–104; RESP 14–17; TEMP 36.7; O2SAT 99–100
--- NOTE | ~2023-09-02 | US_ITS ---
EXAMINATION: US pelvic complete w TV DATE: 09/02/2023 18:21 INDICATION: Pelvic pain TECHNIQUE: Multiple transabdominal and endovaginal sonographic images of the pelvis were obtained. COMPARISON: None. FINDINGS: The uterus measures 10.0 x 4.1 x 6.2 cm. The endometrial complex measures 7 mm in thickness. Trace a mount of anechoic fluid within the endometrial canal. 9 mm nabothian cyst at the cervix. The right ov jose measures 4.2 x 2.8 x 2.7 cm. After flow identified in the right ovary on color Doppler. There are also a few subcentimeter anechoic follicles in the right ovary. The left ovary is not visualized and reportedly surgically absent. There is no free fluid in the pelvis. IMPRESSION: 1. Status post left oophorectomy and 9 mm nabothian cyst at the cervix. Otherwise unremarkable pelvic ultrasound. Reviewed, dictated and finalized at location A. IMPRESSION: 1. Status post left oophorectomy and 9 mm nabothian cyst at the cervix. Otherwi se unremarkable pelvic ultrasound.
--- NOTE | ~2023-09-02 | CT_ITS ---
EXAMINATION: CT abdomen pelvis w con DATE: 09/02/2023 19:03 INDICATION: Lower abdominal pain TECHNIQUE: Computed tomography (CT) of the abdomen and pelvis was performed with 100 mL Omnipaque-350 intravenous contrast. Automated exposure control and iterative reconstruction technique were employe d. The dose-length product was 458.88 mGy-cm. COMPARISON: None FINDINGS: Lung bases are clear. Heart size is normal. No pericardial or pleural effusion. Indeterminate 1.8 cm hypodense/hypoenhancing lesion in the right hepatic lobe. Gallbladder, pancreas, bilateral adrenal gl ands and kidneys are normal. Splenic calcification consistent with old granulomatous disease. Bladder is normal. 1 cm nabothian cyst at the cervix. Anteverted uterus is normal.. There are few small cyst s/follicles at the right adnexa measuring up to 1 cm. Left ovary is not visualized and reportedly isrrael gically absent. Bowels including appendix are normal. Trace amount of likely physiologic free fluid i n the cul-de-sac. No abscess or free intraperitoneal gas. No pathologically enlarged abdominal or pel dyan lymphadenopathy. Bones are unremarkable. IMPRESSION: 1. Trace amount of likely physiologic free fluid in the cul-de-sac. No acute intra-abdominal/pelvic p rocess. 2. 1.8 cm indeterminate hypodense/hypoenhancing lesion in the right hepatic lobe. In the absence of a known prior malignancy or chronic liver disease this is most likely benign but would recommend follo w-up pre and postcontrast MRI for more definitive evaluation. Reviewed, dictated and finalized at location A. IMPRESSION: 1. Trace amount of likely physiologic free fluid in the cul-de-sac. No acute in tra-abdominal/pelvic process. 2. 1.8 cm indeterminate hypodense/hypoenhancing lesion in the right hepatic lob e. In the absence of a known prior malignancy or chronic liver disease this is most likely benign but would recommend follow-up pre and postcontrast MRI for m ore definitive evaluation.
[2023-09-02 13:33] LABS: Basophils Absolute Auto 0.1 K/mm3 (0.0-0.1); Eosinophils Absolute Auto 0.1 K/mm3 (0-0.3); Hematocrit 39.5 % (37.0-47.0); Hemoglobin 13.1 g/dL (12.0-15.0); Immature Granulocyte Absolute 0.02 K/mm3 (0.00-0.031); Immature Granulocyte Percent A 0.3 % (0-0.5); Lymphocytes Absolute Auto 1.09 K/mm3 (0.9-3.2); Mean Corpuscular HGB Conc 33.2 g/dl (32-36); Mean Corpuscular Hemoglobin 30.4 pg (26-34); Mean Corpuscular Volume 91.6 fl (80-100); Mean Platelet Volume 11.1 fl (7.4-10.4); Monocytes Absolute Auto 0.3 K/mm3 (0.1-0.6); Monocytes Percent Auto 4.3 % (2.6-8.5); Neutrophils Absolute Auto 5.3 K/mm3 (1.3-6.7); Neutrophils Percent Auto 77.4 % (45.5-73.1); Platelet Count Result 309 k/mm3 (150-375); Red Blood Count 4.31 M/mm3 (4.2-5.4); Red Cell Distribution Width 12.7 % (11.5-14.5); White Blood Count 6.8 K/mm3 (4.5-10.0)
[2023-09-02 13:45] LABS: Alanine Aminotransferase 18 U/L (6-35); Albumin Level 4.6 g/dL (3.5-5.1); Alkaline Phosphatase 45 U/L (38-126); Anion Gap 10 mmol/L (8-16); Aspartate Amino Transferase 24 U/L (14-36); Bilirubin,Total 0.8 mg/dL (0.2-1.3); Blood Urea Nitrogen 8 mg/dL (7-17); Calcium 9.4 mg/dL (8.4-10.2); Carbon Dioxide 22 mmol/L (22-30); Chloride 105 mmol/L (98-107); Estimated CRCL calculation 75 ml/min; Estimated Glomerular Filt Rate > 60; Glucose 138 mg/dL (65-110); Lipase 75 U/L (23-300); Potassium 3.7 mmol/L (3.4-5.0); Sodium 137 mmol/L (137-145)
[2023-09-02 13:45] LABS: Add Urine Microscopic? YES; Appearance Urine Clear (Clear); Bacteria Urine None Seen /hpf; Bilirubin Urine Negative (Negative); Blood Urine Negative (Negative); Color Urine Yellow (Yellow); Glucose Urine UA Negative (Negative); Ketones Urine 1+ mg/dL (Negative); Leukocyte Esterase Ur Negative LEU/UL (Negative); Nitrate Urine Negative (Negative); Non Pathogenic Casts 0-2; Protein Urine 1+ mg/dL (Negative); RBC Urine 0-2 /hpf (0-2); Specific Grav Ur 1.026 (1.001-1.035); Squamous Epithelial Cell Urine Occasional /hpf (Few); WBC Urine 0-5 /hpf; pH Urine 8.5 (5.0-9.0)
--- NOTE | 2023-09-02 13:49 | ED.ABDPAIN ---
HPI - Abdominal Pain General Chief Complaint: Abdominal Pain Stated Complaint: abdominal pain, cramps Time Seen by Provider: 09/02/23 13:24 Source: patient Mode of arrival: ambulatory Limitations: no limitations History of Present Illness HPI narrative: This is a 32 year old female that presents to the ER for abdominal cramping. Ongoing since this morning. She took Ibuprofen with little relief. Reports associated nausea. Reports her pain feels similar to when she had a ruptured ectopic last year. Denies fever, vomiting, diarrhea, dysuria or hematuria. Related Data Home Medications Medication Instructions Recorded Confirmed fluticasone propionate 220 1 puff inhalation BID 06/09/22 06/09/22 mcg/actuation HFA aerosol inhaler (Flovent HFA) Allergies Allergy/AdvReac Type Severity Reaction Status Date / Time No Known Allergies Allergy Unknown Verified 09/02/23 13:12 Review of Systems Review of Systems: CONSTITUTIONAL: Denies fever GASTROINTESTINAL: Reports abdominal pain, nausea. Denies vomiting, or diarrhea. GENITOURINARY: Denies dysuria or hematuria. All systems reviewed & are unremarkable except as noted in HPI and below PMFSH Past Medical History Medical History (Updated 09/02/23 @ 19:32 by Yen Luis PA-C) Asthma Finger fracture, left HTN (hypertension) idiopathic intracranial hypertension Surgical History Surgical History (Updated 09/02/23 @ 13:49 by Yen Luis PA-C) History of left salpingo-oophorectomy History of removal of skin mole No significant past surgical history Family History Family History Mother Breast cancer Social History Social History Smoking status: Never smoker Alcohol intake: never Substance use: current Substance use type: marijuana Other substance usage details: daily Spiritual care concerns: No Exam Narrative: GENERAL: Well-appearing, well-nourished, and in no acute distress. HEAD: Normocephalic, atraumatic. EYES: EOMI. CHEST: Clear to auscultation. No respiratory distress. No wheezes rales or rhonchi HEART: Regular rate and rhythm. No murmur heard. Normal peripheral pulses. ABDOMEN: Soft, nondistended, normal active bowel sounds. Mild tenderness to palpation throughout the lower abdomen, without guarding EXTREMITIES: Normal range of motion. No edema. SKIN: Warm, dry, no rash. NEURO: No focal deficits. Alert and oriented x3. PSYCH: Normal mood and affect Course Course Emergency Course: Patient was updated on workup and agrees with plan of care Vital Signs Vital signs: Vital Signs Temperature 98.0 F 09/02/23 13:08 Pulse Rate 64 09/02/23 13:08 Respiratory Rate 15 09/02/23 13:08 Blood Pressure 140/88 09/02/23 13:08 Pulse Oximetry 100 09/02/23 13:08 Oxygen Delivery Room Air 09/02/23 13:08 Temperature 98.0 F 09/02/23 13:08 Pulse Rate 104 H 09/02/23 18:23 Respiratory Rate 14 09/02/23 15:30 Blood Pressure 115/76 09/02/23 17:15 Pulse Oximetry 100 09/02/23 17:16 Oxygen Delivery Room Air 09/02/23 13:08 MDM - Abdominal Pain MDM Narrative Medical decision making narrative: Patient presents to the emergency department for abdominal pain and nausea. Reporting similar discomfort to when she had a ruptured ectopic . She is afebrile and nontoxic-appearing. Her vitals are stable. CBC and metabolic panel without concerning findings. UA without evidence of infection. Bedside test is negative. Pelvic ultrasound shows a nabothian cyst at the cervix, otherwise unremarkable. CT scan of the abdomen and pelvis shows a trace amount of physiologic free fluid in the cul-de-sac. No acute intra-abdominal/pelvic process. Does also show a 1.8 cm indeterminate hypodense, hypoenhancing lesion in the right hepatic lobe. Recommended MRI for more definitive ev
[2023-09-02] MEDS: ONDANSETRON INJ 4 MG/2 ML VIAL IV PUSH (13:55)
[2023-09-02] MEDS: MORPHINE SULFATE (*CRX) 4 MG/ML INJ IV PUSH ×2 (13:55→16:26)
[2023-09-02] MEDS: SODIUM CHLORIDE 0.9% IV 1,000 ML 999 ML IV CONT (13:55)
== END 2023-09-02 19:46 | disposition home or self-care (01) ==
PROVIDERS: Emergency Medicine; Emergency Provider Physician Assistant; PCP Family Medicine Sports Medicine
DX: N88.8 Other specified noninflammatory disorders of cervix uteri (principal); K76.9 Liver disease, unspecified; R10.30 Lower abdominal pain, unspecified; J45.909 Unspecified asthma, uncomplicated; G93.2 Benign intracranial hypertension; Z90.721 Acquired absence of ovaries, unilateral; Z90.79 Acquired absence of other genital organ(s)
CPT/HCPCS: 36415; 74177; 76830; 76856; 80053; 81001; 81025; 83690; 85025; 96361; 96374; 96375; 96376; 99284; J2270; J2405; J7030; Q9967

== ENCOUNTER 2023-09-03 05:01 | Emergency (ER) | payer OTHER, SELFPAY ==
[2023-09-03 05:04] VITALS: BP 131/91; PULSE 75; RESP 14; TEMP 36.4; O2SAT 99
--- NOTE | 2023-09-03 05:06 | ECG_ITS ---
Measurements Intervals [place] Rate: 56 P: 55 CA: 150 QRS: 54 QRSD: 86 T: 40 QT: 410 QTc: 398 Interpretive Statements SINUS BRADYCARDIA NO PREVIOUS ECG AVAILABLE FOR COMPARISON Electronically Signed On 09-03-2023 13:00:58 CDT by Juan Miranda M.D.
[2023-09-03 05:37] VITALS: O2SAT 100
[2023-09-03 05:50] VITALS: O2SAT 99
--- NOTE | 2023-09-03 05:58 | ED.GENADULT ---
HPI - General Adult General Chief complaint: Recheck/Abnormal Lab/Rx Stated complaint: multiple complaints Time Seen by Provider: 09/03/23 05:43 History of Present Illness HPI narrative: Patient is a 32-year-old female who presents emergency department with chief complaint of abdominal pain. The patient was seen in the emergency department yesterday had a full work-up including CT and ultrasound patient reports that she was not sent home on any pain medications and reports she is continue to have pain and now has noticed that she started having vaginal bleeding. The patient reports that she has gone through a pad every 2 hours and reports that she had no lightheadedness. Patient reports she is not and had a test yesterday that was negative. Patient did have an ultrasound that showed that she had a cyst in her cervix and reports that she had a CT scan that showed that she had a cyst on her liver. Related Data Home Medications Medication Instructions Recorded Confirmed fluticasone propionate 220 1 puff inhalation BID 06/09/22 06/09/22 mcg/actuation HFA aerosol inhaler (Flovent HFA) Allergies Allergy/AdvReac Type Severity Reaction Status Date / Time No Known Allergies Allergy Unknown Verified 09/02/23 13:12 Review of Systems Review of Systems: A 10 system review of systems was completed on the patient and is negative except for what is stated in the HPI. Nursing and ancillary documentation was reviewed. PMFSH Past Medical History Medical History Asthma Finger fracture, left HTN (hypertension) idiopathic intracranial hypertension Surgical History Surgical History History of left salpingo-oophorectomy History of removal of skin mole No significant past surgical history Family History Family History Mother Breast cancer Social History Social History Smoking status: Never smoker Alcohol intake: never Substance use: current Substance use type: marijuana Other substance usage details: daily Spiritual care concerns: No Exam Narrative: GENERAL: Well-appearing, well-nourished, and in no acute distress. HEAD: Normocephalic, atraumatic. EYES: PERRLA and EOMI. ENT: Nares clear, no rhinorrhea or epistaxis. Mucous membranes moist. NECK: Supple. CHEST: Clear to auscultation. No respiratory distress. HEART: Regular rate and rhythm. No murmur heard. Normal peripheral pulses. ABDOMEN: Soft, nontender, nondistended, normal active bowel sounds. EXTREMITIES: Normal range of motion. No edema. SKIN: Warm, dry, no rash. NEURO: No focal deficits. Alert and oriented x3. PSYCH: Normal mood and affect. Course Vital Signs Vital signs: Vital Signs Temperature 36.4 C 09/03/23 05:04 Pulse Rate 75 09/03/23 05:04 Respiratory Rate 14 09/03/23 05:04 Blood Pressure 131/91 H 09/03/23 05:04 Pulse Oximetry 99 09/03/23 05:04 Temperature 36.4 C 09/03/23 05:04 Pulse Rate 75 09/03/23 05:04 Respiratory Rate 14 09/03/23 05:04 Blood Pressure 131/91 H 09/03/23 05:04 Pulse Oximetry 100 09/03/23 05:37 Medical Decision Making [facility] Narrative Medical decision making narrative: Differential diagnosis includes intra-abdominal infection, anovulatory cycle, dysfunctional uterine bleeding, The patient's laboratory studies and imaging studies were reviewed and discussed with the patient. The patient's pain will be controlled with Toradol in the ER and the patient be discharged home on a course of diclofenac. Vital Signs Vital Signs: Vital Signs Temperature 36.4 C 09/03/23 05:04 Pulse Rate 75 09/03/23 05:04 Respiratory Rate 14 09/03/23 05:04 Blood Pressure 131/91 H 09/03/23 05:04 Pulse Oximetr
[2023-09-03 06:00] VITALS: O2SAT 100
[2023-09-03] MEDS: KETOROLAC 30 MG/ML VIAL (*BKC) IM (06:04)
[2023-09-03 06:15] VITALS: PULSE 52; O2SAT 100
== END 2023-09-03 06:35 | disposition home or self-care (01) ==
LOC: ANHED 06:28
PROVIDERS: Emergency Provider Emergency Medicine; PCP Family Medicine Sports Medicine
DX: R10.9 Unspecified abdominal pain (principal); I10 Essential (primary) hypertension
CPT/HCPCS: 93005; 96372; 99283; J1885

== ENCOUNTER 2023-11-21 16:37 | Emergency (ER) | payer OTHER, SELFPAY ==
--- NOTE | ~2023-11-21 | XR_ITS ---
EXAM: XR foot RT min 3V DATE: 11/21/2023 17:06 HISTORY: Missed last 2 steps. Lateral/plantar pain . COMPARISON: None available. FINDINGS: Normal mineralization. Oblique fracture of the distal shaft of the right fifth metatarsal, with 4 mm anteromedial displacement. No lytic or blastic lesion. Joint spaces are maintained. No ero andrzej or periosteal change. Soft tissues within normal limits. IMPRESSION: Displaced oblique fracture of the distal shaft of the right fifth metatarsal. Reviewed, dictated and finalized at location [facility] [employer] HR REPRESENTATIVE IMPRESSION: Displaced oblique fracture of the distal shaft of the right fifth m etatarsal.
[2023-11-21 17:06] VITALS: BP 117/77; PULSE 77; RESP 16; TEMP 37.1; O2SAT 100
--- NOTE | 2023-11-21 17:28 | ED.LOWEXIN ---
HPI - Extremity Injury (Lower) General Chief Complaint: Extremity Injury, Lower Stated Complaint: Fall Injury/Right Foot Time Seen by Provider: 11/21/23 17:20 Source: patient, RN notes reviewed and old records reviewed Mode of arrival: ambulatory (on crutches) Limitations: no limitations History of Present Illness HPI Narrative: 33-year-old female who presents to [facility] with complaints of injury to her right foot when she missed last 2 steps going down the stairs at her home into the basement while carrying a basket of clothes today about 1-1/1/2 hour prior to arrival in clinic. Patient has noted swelling and deformity to lateral aspect of her right foot,strong pedal pulse present, denies any tingling or numbness to foot. Patient reports that she was seen in the ED at [facility] yesterday for acute migraine and was diagnosed with sinusitis and was placed on oral antibiotic and given pain medication. Patient reports that she has only taken 1/2 of 1 pain pill. MD complaint: foot injury Onset (ago): hour(s) (Within the past 1) Injury: Right: foot Type of Injury: inversion Place: home Severity scale (1-10): 2 Treatments prior to arrival: cold therapy and other (crutches) Related Data Home Medications Medication Instructions Recorded Confirmed amoxicillin 875 mg-potassium 1 tablet PO BID 11/21/23 11/21/23 clavulanate 125 mg tablet Allergies Allergy/AdvReac Type Severity Reaction Status Date / Time No Known Allergies Allergy Unknown Verified 11/21/23 17:31 Review of Systems Review of Systems: CONSTITUTIONAL: Denies fever, chills, or sweats. EYES: Denies visual changes, redness, or discharge. ENT: Denies rhinorrhea, congestion, sore throat, or otalgia. CARDIOVASCULAR: Denies chest pain, palpitations, or edema. RESPIRATORY: Denies cough or dyspnea. GASTROINTESTINAL: Denies abdominal pain, nausea, vomiting, or diarrhea. GENITOURINARY: Denies dysuria or hematuria. SKIN: Denies rash or itching. MUSCULOSKELETAL: Denies back pain, positive for pain and swelling lateral aspect of right foot, or myalgia. NEUROLOGIC: Denies headache,no numbness, or weakness. PSYCHIATRIC: Denies anxiety or depression. All systems reviewed & are unremarkable except as noted in HPI and below PMFSH Past Medical History Medical History Asthma Finger fracture, left HTN (hypertension) idiopathic intracranial hypertension Surgical History Surgical History History of left salpingo-oophorectomy History of removal of skin mole No significant past surgical history Family History Family History Mother Breast cancer Social History Social History Smoking status: Never smoker Alcohol intake: never Substance use: current Substance use type: marijuana Other substance usage details: daily Spiritual care concerns: No Comments At time of signature, agree with nursing past medical, surgical, social and family history. There is no relevant family history pertinent to the presenting complaint Exam Narrative: GENERAL: Well-appearing, well-nourished, and in no acute distress. HEAD: Normocephalic, atraumatic. EYES: PERRLA and EOMI. ENT: Nares clear, no rhinorrhea or epistaxis. Mucous membranes moist. NECK: Supple.no lymphadenopathy CHEST: Clear to auscultation. No respiratory distress.SAO2 100% on room air HEART: Regular rate and rhythm. No murmur heard. Normal peripheral pulses. ABDOMEN: Soft, nontender, nondistended, normal active bowel sounds. EXTREMITIES: Normal range of motion. No edema. positive for swelling and pain with obvious deformity to lateral right foot, patient denies any tingling or numbness to foot, pedal pulses palpable of good quality, foot warm and pink SKIN: Warm, dry, no rash. NEURO: No foca
== END 2023-11-21 18:12 | disposition home or self-care (01) ==
PROVIDERS: Emergency Provider Registered Nurse
DX: S92.351A Displaced fracture of fifth metatarsal bone, right foot, initial encounter for closed fracture (principal); W10.9XXA Fall (on) (from) unspecified stairs and steps, initial encounter; I10 Essential (primary) hypertension; J45.909 Unspecified asthma, uncomplicated
CPT/HCPCS: 29515; 73630; 99214; G0463

== ENCOUNTER 2025-08-11 11:57 | Emergency (ER) | payer OTHER, SELFPAY ==
[2025-08-11 12:00] VITALS: BP 131/87; PULSE 76; RESP 20; TEMP 36.6; O2SAT 100
--- NOTE | 2025-08-11 12:15 | ECG_ITS ---
Test Date: 2025-08-11 12:21:04 Measurements Intervals [place] Rate: 59 P: 16 PA: 155 QRS: 59 QRSD: 89 T: 48 QT: 375 QTc: 373 Interpretive Statements SINUS BRADYCARDIA WITH SINUS ARRHYTHMIA WARNING: DATA QUALITY MAY AFFECT INTERPRETATION No previous ECG available for comparison Electronically Signed On 08-11-2025 14:43:18 CDT by González Donaldson M.D.
--- NOTE | 2025-08-11 12:15 | ED.HA ---
HPI - Headache General Chief Complaint: Headache Stated Complaint: headache from passing out yesterday Time Seen by Provider: 08/11/25 12:00 Source: patient and RN notes reviewed Mode of arrival: ambulatory Limitations: no limitations History of Present Illness HPI Narrative: 34-year-old female presents [facility] complaining of headache after syncopal episode yesterday. Patient said yesterday approximately 24 hours ago while she was at a birthday green party, patient says she was standing outside when she started to feel hot, dizzy, and tunnel vision, patient believe she passed out. Is was witnessed event patient was told she passed out for approximately 5-10 seconds. Patient said she did fall and hit her head but states she believes that the cap of her ball cap took the blunt of the fall. Patient denies any other injuries. Patient said she has a history of syncopal episodes last 1 was approximately 4-5 months ago. Patient has not been evaluated for her syncope episodes. Patient is currently complaining of a headache. Patient reports headaches on the top of her head describes the aching sensation, rated 3/10. Patient also reporting some nausea. Patient overall states feeling better, states she kind of feels and ?off? denies any dizziness, lightheadedness, vision changes, vomiting, chest pain, difficulty breathing, focal weakness, slurred speech, facial droop, or any other symptoms. Patient says she has a follow-up appointment with her PCP tomorrow but did not want to wait any longer want to get checked out prior to the appointment. Patient denies any significant past medical history. Denies take any blood thinners. Related Data Home Medications ?Medication ?Instructions ?Recorded ?Confirmed ?Last Taken ?Type fluticasone propionate 44 1 inh inhalation ONCE 11/23/23 01/17/24 Unknown History mcg/actuation HFA aerosol inhaler Allergies Allergy/AdvReac Type Severity Reaction Status Date / Time No Known Allergies Allergy Unknown Verified 08/11/25 12:05 Review of Systems Review of Systems: CONSTITUTIONAL: Denies fever, chills, or sweats. EYES: Denies visual changes, blurry vision, double vision, redness, or discharge. ENT: Denies rhinorrhea, congestion, sore throat, or otalgia. CARDIOVASCULAR: Denies chest pain, palpitations, dizziness, lightheadedness, or edema. RESPIRATORY: Denies cough or dyspnea. GASTROINTESTINAL: Denies abdominal pain, nausea, vomiting, or diarrhea. GENITOURINARY: Denies dysuria or hematuria. SKIN: Denies rash or itching. MUSCULOSKELETAL: Denies back pain, neck pain, joint pain, or myalgia. NEUROLOGIC: Denies tingling, numbness, seizures, slurred speech, facial droop, focal weakness, or weakness. Positive for loss of consciousness and headache. PSYCHIATRIC: Denies anxiety or depression. All other systems reviewed are negative, except as documented in HPI. PMFSH Past Medical History Medical History History of ectopic Asthma Finger fracture, left HTN (hypertension) idiopathic intracranial hypertension Surgical History Surgical History History of left salpingo-oophorectomy History of removal of skin mole No significant past surgical history Family History Family History Mother Breast cancer Social History Social History Smoking status: Never smoker Alcohol intake: never Substance use: current Substance use type: marijuana Other substance usage details: daily Do You Feel Safe in your Home?: Yes Lack of Transportation: No Lack of Food: Never True Current Housing: I Have Housing Concerned About Future Housing: No Difficulty Paying Gas/Electric Bills: No Difficulty Paying for Meds: No Currently Unemployed: No Education: High School Diploma/GED Difficulty w/ Childcare or Family Care: No Living arrangements: with family Occupation/Education: unemployed Spiritual care concerns: No Comments At the time of my signature, I reviewed and agree with the nursing past medical, surgical, social, and family history. There is no relevant family history pertinent to the patient complaint. Exam Narrative: GENERAL: This is a well-nourished, well-developed adult, in no apparent distress. They are non ill-appearing, nontoxic appearing. HEAD: normocephalic, atraumatic. No raccoon eyes or Blas signs. EYES: Sclera clear/white. Conjunctiva normal. Vision is grossly intact. Extraocular movements intact. Pupils PERRLA EARS: External ears normal, auditory canals clear and without drainage, TMs normal without perforation. Hearing grossly intact. No hemotympanum bilaterally. NOSE: External nose normal with no obvious nasal discharge, nasal turbinates without redness, no rhinorrhea. No septal hematoma. THROAT: Mucous membranes moist, posterior pharynx clear, without erythema or swelling. Uvula midline. OROPHARYNX: Atraumatic, teeth intact. No missing teeth. No gross tooth decay, no gingivitis. Tongue midline. NECK: Neck supple, non-tender without lymphadenopathy, masses or thyromegaly. No cervical point tenderness, crepitus, or step-offs. CARDIOVASCULAR: Regular rate and rhythm without murmurs, gallops, or rubs. RESPIRATORY: Clear to auscultation. Breath sounds equal bilaterally. No wheezes, rales, or rhonchi. SKIN: warm, Dry, intact with no suspicious lesions or rash, good texture and turgor. NEURO: awake, alert, and oriented to person, place and time. There were no obvious focal neurologic abnormalities. Cranial nerve 2-12 grossly intact. No pronator drift. No limb ataxia. No facial droop. Speech is clear and comprehensive. EXTREMITIES: No joint tenderness, effusion, or edema noted. BACK: Nontender without deformity. No CVA tenderness. No thoracic or lumbar point tenderness, crepitus, or step-offs. Course Course Emergency Course: Portions of this record may have been created with voice recognition software Level of Care: Express Care Visit Vital Signs Vital signs: Vital Signs Temperature 97.8 F 08/11/25 12:00 Pulse Rate 76 08/11/25 12:00 Respiratory Rate 20 08/11/25 12:00 Blood Pressure 131/87 08/11/25 12:00 Pulse Oximetry 100 08/11/25 12:00 Oxygen Delivery Room Air 08/11/25 12:00 Temperature 97.8 F 08/11/25 12:00 Pulse Rate 76 08/11/25 12:00 Respiratory Rate 20 08/11/25 12:00 Blood Pressure 131/87 08/11/25 12:00 Pulse Oximetry 100 08/11/25 12:00 Oxygen Delivery Room Air 08/11/25 12:00 Reviewed MDM - Headache MDM Narrative Medical decision making narrative: NIH score 0. Hungarian CT head injury score 0. Low suspicion for significant head injury. No indication for advanced imaging. Patient prodrome symptoms prior to syncopal episode, likely vasovagal event. Physical exam reassuring, no evidence of traumatic injuries or concerning findings. EKG is sinus bradycardia without any ischemic findings. No arrhythmia or heart block identified. No ectopy. Symptoms do not appear to be cardiac in nature. Syncopal episode was witnessed description not appear to be any seizure-like activity reported. Patient also reported that checked her blood pressure while she was there and it was low. Patient's vital signs are he mowed dynamically stable, and blood pressure is normotensive. Patient not exhibiting any orthostatics symptoms. Offered patient ER transfer further evaluation and management and potential lab work given her syncopal episode she declined. Patient does have a mild headache with some nausea patient could have a possible mild concussion given her fall yesterday. Recommend supportive therapy and rest. Patient has a close follow-up with her PCP tomorrow. Advised patient to to go to her appointment tomorrow for further evaluation and management. Strict ER precautions discussed with patient especially for headache worsens, she develops vision changes, vomiting, double vision, dizziness she loses consciousness again, seizure-like activity, confusion, slurred speech, one-sided weakness, chest pains, breathing problems vaginal bleeding, black tarry stools, or any serious concerns. Discussed physical exam findings. Advised supportive measures and signs/symptoms to go to the ER. Pt is appropriate for outpt treatment and f/u. Differential Diagnosis Differential diagnosis: Likely migraine, subarachnoid hemorrhage, headache and other (Concussion, close head injury, syncope, near-syncope, seizure, vasovagal event, arrhythmia, heart block, anemia) ECG Data EKG #1: Attestation: I personally reviewed and interpreted this ECG as follows: ECG completion date: 08/11/25 ECG completion time: 12:21 Prior ECG tracings: not available for review EKG Interpretation: bradycardia, sinus rhythm, no ectopy, normal QRS, normal QT, NL axis and no acute changes Critical Care Time Critical Care Time Critical Care Time: No Discharge Plan Discharge Clinical Impression: Syncope Qualifiers: Syncope type: unspecified Qualified Code(s): R55 - Syncope and collapse Headache Qualifiers: Headache type: unspecified Headache chronicity pattern: acute headache Intractability: not intractable Qualified Code(s): R51.9 - Headache, unspecified Patient Disposition: Home Condition: Stable Instructions: Syncope (ED), Concussion (ED) Additional Instructions: Your EKG is reassuring today, no evidence of heart attack, and no arrhythmia or heart block identified. You may take Tylenol or ibuprofen as needed for headache. You may take ibuprofen 600 mg to 800 mg every 6-8 hours. Do not exceed more than 800 mg of ibuprofen per dose. Do not exceed more than 3200 mg ibuprofen in a day. You may take up to 1000 mg Tylenol every 6-8 hours. Do not exceed 1000 mg per dose, do exceed more than 4000 mg of Tylenol in a day. Rest and drink plenty of fluids. You may supplement with electrolyte drinks such as Pedialyte or Gatorade to help with hydration. Avoid any caffeinated drinks or alcoholic drinks as this may worsen diuresis and dehydration. Limit screen time if it aggravates her symptoms. Follow-up with PCP tomorrow as scheduled. If if he to develops worsening headaches, vision changes, blurry vision, dizziness, lightheadedness, you lose consciousness again, seizures, confusion, slurred speech, one-sided weakness, vomiting, vaginal bleeding or black tarry stools, or any serious concerns please go to the ER immediately. Patient Language: Sinhala Prescriptions: No Action albuterol sulfate [Ventolin HFA] 90 mcg/actuation HFA aerosol inhaler 2 puff INHALATION QID PRN (Reason: shortness of breath or wheezing) Qty: 1 1RF fluticasone propionate 44 mcg/actuation HFA aerosol inhaler 1 inh inhalation ONCE Rx Instructions: administer with spacer Follow-up/Referrals: Gricel,Demond Jung MD [Primary Care Provider, Unknown] Time of Disposition: 12:30
--- OUTSIDE RECORDS SUMMARY | 2025-08-11 12:47 | XMS_ITS | Clinical Summary ---
Author Organization [facility] Address [address] [place] [address] Care Team Providers Care Renal Dietitian Name Role Phone Getachew Day MD Primary Care Provider [phone] Source Comments [facility],non-owned Affiliates and Associated Physician Practices is amultiple site organization consisting of ambulatory clinics and hospital sitesin [place], [place], [place] and [place]. This disclosure is being madepursuant to the Care Everywhere program and may not contain all information available regarding this patient. Last updated 18.[facility] Allergies No known active allergies Medications * Be aware that medications may not be up to date on this document. Alwaysverify current medications with the patient. 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 IIH (idiopathic intracranial hypertension) 01/24 Family History Medical History Relation Name Comments Glaucoma Neg Hx Social History Tobacco Use Types Packs/Day Years Used Date Smoking Tobacco: Never Smokeless Tobacco: Never Alcohol Use Standard Drinks/Week Comments Yes 0 (1 standard drink = 0.6 oz pur e alcohol) Comments No Sex and Gender Information Value Date Recorded Sex Assigned at Not on file Legal Sex Female 4:22 PM 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 SYSTEMS ANALYST Gender Identity Not on file Sexual Orientation Not on file Last Filed Vital Signs Vital Sign Reading Time Taken Comments Blood Pressure 117/84 02/22/2019 11:00 AM CDT Pulse 73 02/22/2019 11:00 AM CDT Temperature 37 C (98.6 F) 02/22/2019 9:04 AM CDT Respiratory Rate 16 02/22/2019 11:00 AM CDT Oxygen Saturation 97% 02/22/2019 11:00 AM CDT Inhaled Oxygen Concentration - - Weight 84.2 kg (185 lb 9.6 oz) 02/23/2021 2:02 P M CDT Height 157.5 cm (5' 2) 12/14/2020 11:44 AM SUSTAINABLE SYSTEMS ANALYST Body Mass Index 33.95 12/14/2020 11:44 AM SUSTAINABLE SYSTEMS ANALYST Plan of Treatment Health Maintenance Due Date Last Done Comments HIV SCREENING 2007 HEPATITIS C SCREENING 11/16/2010 DTAP/TDAP/TD VACCINES (1 - Tdap) 2011 HEPATITIS B VACCINE (1 of 3 - 19+ 3-dose series) 2011 HPV VACCINE (1 - 3-dose SCDM series) 2019 DEPRESSION SCREENING 2024 COVID-19 VACCINE (1 - 2023-2 5 season) 2025 INFLUENZA VACCINE (#1) 2025 ZOSTER VACCINE (1 of 2) 2042 HIB VACCINE Aged Out No longer eligi ble based on patient's age to complete this topic MENINGOCOCCAL (Group B) VACC INE SHARED DECISION-MAKING Aged Out No longer eligibl e based on patient's age to complete this topic MENINGOCOCCAL GROUPS A/C/Y/W VACCINE Aged Out No longer eligible b ased on patient's age to complete this topic PNEUMOCOCCAL VACCINE Aged Out No long er eligible based on patient's age to complete this topic Insurance MEDICAID - [place] [facility] Care Teams Renal Dietitian Relationship Specialty Start Date End Date Getachew Day MD [address] [facility] [address] [place] [address] PCP - General 01/24/19
== END 2025-08-11 12:39 | disposition home or self-care (01) ==
PROVIDERS: PCP Family Medicine
DX: R55 Syncope and collapse (principal); R51.9 Headache, unspecified; J45.909 Unspecified asthma, uncomplicated; G93.2 Benign intracranial hypertension
CPT/HCPCS: 93005; 99213; G0463